=== PATIENT | male | born 1955 | race Hispanic/Latino ===

== ENCOUNTER 2016-08-26 16:14 | Emergency (ER) | payer OTHER ==
[~2016-08-26] VITALS: Ht 162.6 cm; Wt 104.5 kg
[~2016-08-26 16:14] MED LIST: CITA20TA11 PO; GLU500 PO; GLYB2.5T4 PO; GLYB2.5T5 PO; HIBICLENS; METF1000 PO; MUPI30OI3 TP; SULF1TAB35 PO; ZLP10T PO; ZOLP5TAB6 PO; ZYRTEC
[2016-08-26 16:21] VITALS: BP 183/92; PULSE 100; RESP 20; O2SAT 100
--- NOTE | 2016-08-26 20:11 | ED.REPORT ---
HPI-Neck Pain Free Text HPI Notes Aug 26, 2016 ED Provider: Daryl Peter MD History of Present Illness: Patient is a 60 y.o. M presents Pain began friday started with redness, pain located with left retroauricular abscess that opened up and drained, described as sharp,moves toward left ear. Assocaited with fever, chills, headache. Patient taking ibuprophen and tylenol for pain, and Bactrim for infection. Patient saw PCP Cassie Londono in . Patient had similar episode 6 months ago. Patient stated he thinks the cause is not taking metformin and lisinopril. Denies chage in vision, Nursing Notes Stated Complaint: PAIN IN NECK Chief Complaint: Pain in neck associated with abscess Nursing Notes Reviewed: Yes Allergies: Coded Allergies: Penicillins (Verified Allergy, Severe, hives/rash all body, 05/09/15) Scheduled Citalopram (Citalopram) 20 Mg Tablet 20 MG PO DAILY Glyburide (Glyburide) 2.5 Mg Tablet 2.5 MG PO BIDAC Metformin (Glucophage) 1,000 Mg Tablet 1,000 MG PO BID Metformin-Expunged Drug, Do Not Renew! (Metformin-Expunged Drug, Do Not Renew!) 500 Mg Tablet 500 MG PO BID CONTRAINDICATED: MALES SrCr 1.5 OR GREATER; FEMALES SrCr 1.4 ORGREATER ORCrCl <60; HOLD METFORMIN 48 HOURS AFTER IV CONTRAST ADMINISTRATION. Sulfamethoxazole/Trimeth 800-160 mg (Bactrim DS 800-160 mg) 1 Each Tablet 1 TABLET PO BID Zolpidem-Expunged Drug, Do Not Renew! (Zolpidem-Expunged Drug, Do Not Renew!) 10 Mg Tab 10 MG PO HS For Insomnia Scheduled PRN Zolpidem (Zolpidem) 5 Mg Tablet 5 MG PO HS PRN PRN For Insomnia Miscellaneous Medications ([Zyrtec]) ([hibiclens]) Glyburide-Expunged Drug, Do Not Renew! (Glyburide-Expunged Drug, Do Not Renew!) 2.5 Mg Tablet 2.5 MG PO Mupirocin (Centany) 30 Gm Oint...g. 30 GM TP General Time Seen by Provider: 18:20 Chief Complaint Neck pain, Other (abscess) Hx Obtained From: Patient Arrived By: Walk-in Onset Occurred: 3 days ago Symptom Duration: Constant Progression Since Onset: Constant, Gradually worsening Location: : Lateral neck left Severity: Current: Pain level 7 out of 10 Severity: Maximum: Moderate Associated with: Reports: Fever, Stiff neck Exacerbated by: Turn to right, Turn to left, Palpation Relieved by: OTC medications, Prescription meds Past Medical History Past Medical History Kidney stones Insomnia Diabetes type II on metform HTN Reports: Diabetes mellitus Past Surgical History circumcision at age 49 for phimosis. Smoking History Never Smoker Social History Alcohol Use: "Social" (stopped 2 weeks ago) Drug Use: Denies drug use Other Social History: Ambulatory Status Independent Review of Systems Constitutional: Reports: Chills, Fever, Denies: Fatigue, Lethargy, Malaise, Recent wt loss, Weakness - generalized Eyes: Denies: Blurred bilateral, Blurred left, Blurred right, Diplopia, Discharge bilateral, Discharge left, Discharge right, Eye pain bilateral, Eye pain left, Eye pain right, Photophobia, Redness bilateral, Redness left, Redness right, Visual loss bilateral, Visual loss left, Visual loss right Ears / Nose / Throat: Denies: Ear drainage bilateral, Ear drainage left, Ear drainage right, Ear ringing bilateral, Ear ringing left, Ear ringing right, Earache bilateral, Earache left, Earache right, Hearing loss bilateral, Hearing loss left, Hearing loss right, Mouth pain, Nasal congestion, Nose bleeding, Sinus problem, Sore throat, Throat pain, Throat swelling, Tongue pain, Tongue swelling, Toothache, Voice change Respiratory: Denies: Dyspnea on exertion, Hemoptysis, Non-productive cough, Parox nocturnal dyspnea, Pleuritic pain, Prod cough, bloody, Prod cough, brown, Prod cough, clear, Prod cough, green, Prod cough, white, Prod cough, yellow, Shortness of breath, Wheezing Cardiovascular: Denies: Chest pain, Dyspnea on exertion, Edema, Orthopnea, Palpitations, Parox nocturnal dyspnea, Syncope GI: Denies: Abdominal pain, Anorexia, Belching, Bloody/tarry stool, Constipation, Diarrhea, Dysphagia, Hematemesis, Hematochezia, Melena, Mucousy stool, Nausea, Rectal pain, Vomiting Musculoskeletal: Denies: Back pain, Extremity pain, Extremity swelling, Joint pain, Joint swelling, Lumbar pain, Myalgia, Neck pain, Thoracic pain Complete sys rev & neg: except as marked. Physical Exam Initial Vital Signs Vital Signs (First) Date Time Temp Pulse Resp B/P Pulse Ox O2 Delivery O2 Flow Rate FiO2 08/26/16 16:21 36.9 100 20 183/92 100 Room Air Initial VS: Reviewed Head / Eyes: PERRL ENT: Mucous membranes moist, Conjunctiva normal, No scleral icterus Respiratory: Breath sounds normal, Clear to auscultation, No respiratory distress Cardiovascular: Regular rate & rhythm, Heart sounds normal, Intact distal pulses Abdomen / GI: Soft, No guarding, No rebound, No distention Back: No CVA tenderness Lymphatic: No lymphadenopathy Extremities: Vascular intact, Neuro intact, No swelling, No tenderness Skin: Warm, Dry, No cyanosis Psychiatric: Mood/affect normal, Behavior normal, Normal thought content Head / Scalp Abnl: Positive: Scalp swollen occipital L, Scalp tender occipital L Acuity / Tonometry: Negative: Hyperopia present, Increased intraoc pres L, Increased intraoc pres R, Intraocular pressure L, Intraocular pressure R, Myopia present, Visual acuity abnl bilat, Visual acuity abnormal L, Visual acuity abnormal R Pupils: Negative: Anisocoria, Blown L, Blown R, Dilated L, Dilated R, Nonreactive L, Nonreactive R, Photophobia L, Photophobia R, Pinpoint, Postoperative L, Postoperative R, Sluggish L, Sluggish R, Teardrop L, Teardrop R Abscess open and actively draining purulent materail behind left ear. Tenderness/Guarding/Rebound: Negative: Guarding involuntary, Guarding voluntary , McBurney's point tender, Smith's sign positive, Rebound diffuse, Rebound localized, Rigid to palpation, Tender LLQ..., Tender LUQ..., Tender RLQ..., Tender RUQ..., Tender diffuse, Tender epigastric, Tender flank L, Tender flank R , Tender periumbilical, Tender suprapubic Procedures Procedure Notes: Abcess wound was cleaned and drained, Area was anethesized with 6 cc of lidocaine with out epi aproximately 5-8 cc purlent materal drained from wound. Wound was irrigated and bandaged. EBL < 1 cc Re-Eval/Medical Decision Med Decision/Clinical Course Patient is a 60 y.o. M presented Pain began friday started with redness, pain located with left retroauricular abscess that opened up and drained, described as sharp,moves toward left ear. Assocaited with fever, chills, headache. Patient taking ibuprophen and tylenol for pain, and Bactrim for infection. ABscess behind left ear was drained, irrigated, and bandaged in ED. Patient is to continue antibiotic course and follow up with PCP in one week. Differential Diagnosis: Positive: Bite, Burn, Neck abrasion Severity: Non life-threatening Diagnosis Appears: Mild Comorbidities: Diabetes mellitus Discharge & Departure Primary Impression: Skin abscess Disposition: Home Discharge Condition All VS Reviewed: Yes Condition: Stable Additional Instructions: During you visit to [facility] Emergency Department we drained and cleaned your wound. Your vital signs were stable and safe for discharge. Continue to keep wound clean and dry. Bandage but to not block air flow to wound. You may use NSAIDs for pain Finish your course of antibiotics as directed Use warm compress to help wound to drain. Do not hesitate to call emergency services or your primary care physician if you experience any of the following. - High unrelenting fevers. - Uncontrolled vomiting. - Severe hypertension. - Syncope or loss of consciousness. - Chest pain or severe shortness of breath. Referrals: Jameel Coleman MD (PCP) copies to: Jameel Coleman MD, AARON J DO Aug 26, 2016 18:31 RICKI TESFAYE DO Aug 26, 2016 20:11 Daryl Peter MD Aug 26, 2016 23:03
== END 2016-08-26 20:30 | disposition home or self-care (01) ==
LOC: SED 16:14
DX: L02.811 Cutaneous abscess of head [any part, except face] (principal); M54.2 Cervicalgia; E11.9 Type 2 diabetes mellitus without complications; I10 Essential (primary) hypertension; Z79.84 Long term (current) use of oral hypoglycemic drugs; Z88.0 Allergy status to penicillin

== ENCOUNTER 2016-08-28 04:29 | Emergency (ER) | payer OTHER ==
[~2016-08-28] VITALS: Ht 162.6 cm; Wt 104.5 kg
[2016-08-28 04:33] VITALS: BP 169/85; PULSE 77; RESP 16; O2SAT 98
--- NOTE | 2016-08-28 04:47 | ED.REPORT ---
HPI-Rash / Abscess Date of Service Aug 28, 2016 ED Provider: Arron Arnlod MD Patient is a 60 year old male with a history of diabetes mellitus and hypertension with recent I&D of an abscess of his left neck on August 26 who presents to the ED complaining of ongoing pain associated with his abscess, worse in severity for the past 2 days. The patient first developed the abscess 5 days ago, with the wound draining prior to the I&D being performed. Patient states that draining the abscess did not improve his pain and that he wishes they would have done something else to treat the abscess. He is currently on Bactrim for antibiotics and is taking Ibuprofen for pain. The patient has a very important interview tomorrow, as he has recently been unemployed, and would like this to be taken care of by then. The patient's a year ago and he has been supporting his daughter since that time. Patient reports associated neck but denies left ear pain, shortness of breath, or fever. Nursing Notes Stated Complaint: NECK CYST PAIN Chief Complaint: Skin Rash/Abscess Nursing Notes Reviewed: Yes Allergies: Coded Allergies: Penicillins (Verified Allergy, Severe, hives/rash all body, 05/09/15) Scheduled Citalopram (Citalopram) 20 Mg Tablet 20 MG PO DAILY Glyburide (Glyburide) 2.5 Mg Tablet 2.5 MG PO BIDAC Metformin (Glucophage) 1,000 Mg Tablet 1,000 MG PO BID Metformin-Expunged Drug, Do Not Renew! (Metformin-Expunged Drug, Do Not Renew!) 500 Mg Tablet 500 MG PO BID CONTRAINDICATED: MALES SrCr 1.5 OR GREATER; FEMALES SrCr 1.4 ORGREATER ORCrCl <60; HOLD METFORMIN 48 HOURS AFTER IV CONTRAST ADMINISTRATION. Sulfamethoxazole/Trimeth 800-160 mg (Bactrim DS 800-160 mg) 1 Each Tablet 1 TABLET PO BID Zolpidem-Expunged Drug, Do Not Renew! (Zolpidem-Expunged Drug, Do Not Renew!) 10 Mg Tab 10 MG PO HS For Insomnia Scheduled PRN Zolpidem (Zolpidem) 5 Mg Tablet 5 MG PO HS PRN PRN For Insomnia Miscellaneous Medications ([Zyrtec]) ([hibiclens]) Glyburide-Expunged Drug, Do Not Renew! (Glyburide-Expunged Drug, Do Not Renew!) 2.5 Mg Tablet 2.5 MG PO Mupirocin (Centany) 30 Gm Oint...g. 30 GM TP General Time Seen by MD: 04:45 Chief Complaint Abscess Hx Obtained From: Patient Arrived By: Walk-in Onset Occurred: 5 days ago (worse for the past 2 days) Symptom Duration: Since onset Quality: Painful Severity: Current: Moderate Severity: Maximum: Moderate Recent Healthcare: No recent hospitalization, Recent doctor visit Past Medical History Past Medical History Kidney stones Insomnia Diabetes type II on metform hypertension Past Surgical History circumcision at age 49 for phimosis. Smoking History Never Smoker Social History Alcohol Use: "Social" Drug Use: Denies drug use Other Social History: , Local resident Ambulatory Status Independent Review of Systems Constitutional: Denies: Chills, Fever Ears / Nose / Throat: Denies: Earache left Respiratory: Denies: Shortness of breath Musculoskeletal: Reports: Neck pain Skin: Reports Rash (abscess), Denies Itching Complete sys rev & neg: except as marked. Physical Exam Initial Vital Signs Vital Signs (First) Date Time Temp Pulse Resp B/P Pulse Ox O2 Delivery O2 Flow Rate FiO2 08/28/16 04:33 36.1 77 16 169/85 98 Room Air Initial VS: Reviewed, Vital signs normal Extremities: Vascular intact, Neuro intact Neurologic: Alert, Oriented, Nonfocal Psychiatric: Mood/affect normal, Behavior normal, Normal thought content General/Constitutional: Awake, Alert, No acute distress Appearance / Presentation: Positive: Obese Skin: Warm, Dry Abscess Notes: large erythematous indurated and swollen area involving the left half of the posterior neck. Large and draining centrally. Head / Eyes: Normocephalic, PERRL see skin exam for abscess description ENT: Airway patent Left Ear / Mastoid: Negative: External canal red, Tympanic memb perforated, Tympanic membrane red erythema of the posterior left ear Respiratory / Chest: No respiratory distress, No wheezing, No stridor Cardiovascular: Heart rate NL, Cap refill not delayed Neck: Supple, No midline vertebral tend Interpretation & Diagnostics Lab Results Interpretation Result Diagram: 08/28/16 0525 08/28/16 0525 Test 08/28/16 05:25 White Blood Count 14.5th/mm3 (3.8-10.1) Red Blood Count 3.44mil/mm3 (4.40-5.80) Hemoglobin 11.3g/dL (13.8-17.2) Hematocrit 33.6% (41.0-50.0) Mean Corpuscular Volume 97.7fL (81-100) Mean Corpuscular Hemoglobin 32.8pg (27.0-35.0) Mean Corpuscular Hemoglobin Concent 33.6% (32.0-37.0) Red Cell Distribution Width 13.0% (12.3-15.4) Platelet Count 321bil/L (150-400) Neutrophils (%) (Auto) 77.7% (40-74) Lymphocytes (%) (Auto) 13.8% (14-46) Monocytes (%) (Auto) 5.7% (4-12) Eosinophils (%) (Auto) 1.7% (0-5) Basophils (%) (Auto) 0.1% (0-3) Sodium Level 132mEq/L (134-144) Potassium Level 4.3mEq/L (3.5-5.2) Chloride Level 93mEq/L (97-108) Carbon Dioxide Level 26mmol/L (18-29) Blood Urea Nitrogen 15mg/dL (8-27) Creatinine 0.70mg/dL (0.76-1.27) Estimat Glomerular Filtration Rate 122mL/min (>59) Glucose Level 257mg/dL (60-99) Lactic Acid Level 1.1mmol/L (0.4-2.0) Calcium Level 9.2mg/dL (8.5-10.1) Magnesium Level 1.7mg/dL (1.6-2.6) Total Bilirubin 0.3mg/dL (0.0-1.2) Aspartate Amino Transf (AST/SGOT) 14U/L (0-50) Alanine Aminotransferase (ALT/SGPT) 13U/L (0-44) Alkaline Phosphatase 83U/L (25-160) Total Protein 8.0g/dL (6.4-8.4) Albumin 3.5g/dL (3.4-5.0) Lab Results Interpretation: Elevated white count, elevated blood glucose Re-Eval/Medical Decision Med Decision/Clinical Course 60-year-old male with an abscess on his left posterior neck which was drained couple days ago. He now has worsening symptoms. His workup was initiated by me to include labs, IV, and contrast CT. His care will be turned over at change of shift to Dr. Ortez. Source of Hx: Old records Discharge & Departure Shift Change Sign-Out Patient Care Transferred: Yes Discussed Complaint(s): Yes Laboratory Evaluation: Ordered, not yet done Imaging Studies: Ordered, not yet done Impression: Primary Impression: Neck abscess Referrals: Jameel Coleman MD (PCP) Care Transferred to: Dr. Ortez Care Transferred at: 06:00 Amarjit Attestation Portions of this note were transcribed by Nai Rae. I, Dr. Arnold personally performed the history, physical exam and medical decision-making; I reviewed and confirmed the accuracy of the information in the transcribed note. Signed by: Amarjit Mills, 08/28/2016 0549 copies to: Jameel Coleman MD, Howard L MD Aug 28, 2016 04:47 Nai Rae Aug 28, 2016 04:49
[2016-08-28] MEDS ORDERED: 0.9% Sodium Chloride 1,000 ML IV ONE (04:58)
[2016-08-28 05:34] LABS: BASOPHILS % (AUTO) 0.1 % (0-3); EOSINOPHILS % (AUTO) 1.7 % (0-5); MONOCYTES % (AUTO) 5.7 % (4-12); Mean Corpuscular Hemoglobin 32.8 pg (27.0-35.0); Mean Corpuscular Volume 97.7 fL (81-100); NEUTROPHILS % (AUTO) 77.7 % (40-74); Platelet Count 321 bil/L (150-400)
[2016-08-28 05:57] LABS: Magnesium 1.7 mg/dL (1.6-2.6)
[2016-08-28] MEDS ORDERED: cefTRIAXone Inj 2,000 MG in Dextrose 5% Minibag Plus 50 ML IV STA (08:13)
[2016-08-28] MEDS ORDERED: oxyCODONE-Acetamin 5-325 mg Tablet PO ONE (08:15)
[2016-08-28] MEDS ORDERED: HYDROmorphone 1 mg/mL Inj ONE (08:44)
[2016-08-28] MEDS ORDERED: HYDROmorphone 0.5 mg/0.5 mL iSecure Syringe IVPUSH PRN (09:00)
--- NOTE | 2016-08-28 10:08 | DRSVH ---
PROCEDURE: CT NECK SOFT TISSUES WITH CONTRAST ([id number]) INDICATIONS: abscess TECHNIQUE: After the administration of intravenous contrast, 3.0 mm axial sections acquired from the sella to th e aortic arch. Additional oblique axial 3.0 mm sections acquired through the pharynx. 3 mm thick co jordan reformats were generated. For radiation dose reduction, the following was used: automated exp osure control. COMPARISON: [facility], CT, BRAIN W/O CONTRAST, 05/04/2013, 12:22. FINDINGS: Image quality: Excellent. Lymph nodes: No enlarged lymph nodes seen throughout the neck. Vessels: Visualized vasculature appears patent. Neck spaces: The oropharynx, nasopharynx, and pharynx demonstrate no mucosal lesions. The vocal cor ds, false vocal cords, pyriform sinuses, epiglottis, vallecula, and tongue base all appear normal. E xtramucosal spaces appear unremarkable. Glands: The parotid and submandibular glands appear normal. Thyroid gland appears normal. Miscellaneous: Visualized brain and orbits appear normal. Lung apices appear clear. Superficial so ft tissues appear normal. Note is made of prominent soft tissue swelling involving the left posterol ateral neck superiorly, extending into the retroauricular area on the left, with edema but no abscess formation within or adjacent to this area. Bones: No suspicious bony lesions. Visualized sinuses and mastoids appear unremarkable. IMPRESSION: The imaging findings indicate prominent soft tissue swelling of the upper posterolateral neck and calvarial region, extending into the retroauricular area of the left head, without internal abscess or evidence of underlying osteomyelitis. Cellulitis is the most likely cause. Trauma concei vably could produce this appearance. Dictated by: Jeff Angelo M.D. on 08/28/2016 at 10:02 Approved by: Jeff Angelo M.D. on 08/28/2016 at 10:05
[2016-08-28 10:49] VITALS: BP 141/83; PULSE 78; RESP 16; O2SAT 99
[2016-08-28] MEDS ORDERED: OXYC1TAB24 PO (10:52)
[2016-08-28] MEDS ORDERED: CLIN-78 PO (10:52)
== END 2016-08-28 10:59 | disposition home or self-care (01) ==
LOC: SED 04:29
DX: L02.11 Cutaneous abscess of neck (principal); E11.9 Type 2 diabetes mellitus without complications; I10 Essential (primary) hypertension; Z98.890 Other specified postprocedural states; Z79.84 Long term (current) use of oral hypoglycemic drugs; Z87.442 Personal history of urinary calculi; Z88.0 Allergy status to penicillin
CPT/HCPCS: 36415; 70491; 80053; 83605; 83735; 85025; 96361; 96365; 96375; 99285; J0696; J1170; J7030; Q9967

== ENCOUNTER 2017-01-08 23:35 | Emergency (ER) | payer OTHER ==
[~2017-01-08] VITALS: Ht 162.6 cm; Wt 104.5 kg
[~2017-01-08 23:35] MED LIST changes: +CLIN-78 PO; +OXYC1TAB24 PO
[2017-01-08 23:38] VITALS: BP 151/84; PULSE 96; RESP 16; O2SAT 99
--- NOTE | 2017-01-08 23:46 | ED.REPORT ---
HPI-Trauma Minor / Fall Date of Service Jan 08, 2017 ED Provider: Giovanni Singh DO Pt is a 61 year old male with a history of Type II DM and HTN who presents to the ED complaining of left-sided chest pain after a ground level fall. He denies head pain, neck pain, and LOC. The pt was walking when he slipped and fell on his left side. Nursing Notes Stated Complaint: FELL,HIT CEMENT FLOOR Chief Complaint: Multiple Trauma/Fall Nursing Notes Reviewed: Yes Allergies: Coded Allergies: Penicillins (Verified Allergy, Severe, hives/rash all body, 01/08/17) Scheduled Citalopram (Citalopram) 20 Mg Tablet 20 MG PO DAILY Clindamycin (Clindamycin) 300 Mg Capsule 300 MG PO TID Glyburide (Glyburide) 2.5 Mg Tablet 2.5 MG PO BIDAC Metformin (Glucophage) 1,000 Mg Tablet 1,000 MG PO BID Metformin-Expunged Drug, Do Not Renew! (Metformin-Expunged Drug, Do Not Renew!) 500 Mg Tablet 500 MG PO BID CONTRAINDICATED: MALES SrCr 1.5 OR GREATER; FEMALES SrCr 1.4 ORGREATER ORCrCl <60; HOLD METFORMIN 48 HOURS AFTER IV CONTRAST ADMINISTRATION. Sulfamethoxazole/Trimeth 800-160 mg (Bactrim DS 800-160 mg) 1 Each Tablet 1 TABLET PO BID Zolpidem-Expunged Drug, Do Not Renew! (Zolpidem-Expunged Drug, Do Not Renew!) 10 Mg Tab 10 MG PO HS For Insomnia Scheduled PRN Zolpidem (Zolpidem) 5 Mg Tablet 5 MG PO HS PRN PRN For Insomnia oxyCODONE-Acetaminophen 5-325 mg (oxyCODONE-Acetaminophen 5-325 mg) 1 Each Tablet 1-2 TAB PO Q6H PRN PRN For Pain Miscellaneous Medications ([Zyrtec]) ([hibiclens]) Glyburide-Expunged Drug, Do Not Renew! (Glyburide-Expunged Drug, Do Not Renew!) 2.5 Mg Tablet 2.5 MG PO Mupirocin (Centany) 30 Gm Oint...g. 30 GM TP General Time Seen by MD: 23:46 Chief Complaint Fall Hx Obtained From: Patient Arrived By: Walk-in Onset Occurred: Just prior to arrival Symptom Duration: Since onset Location: Chest Knee left Quality: Painful Severity: Current: Moderate Severity: Maximum: Moderate Recent Healthcare: No recent doctor visit, No recent hospitalization Similar Sx Previous: No Past Medical History Past Medical History Kidney stones Insomnia Diabetes type II on metform hypertension Past Surgical History circumcision at age 49 for phimosis. Smoking History Never Smoker Social History Alcohol Use: "Social" Drug Use: Denies drug use Other Social History: , Local resident Ambulatory Status Independent Review of Systems Denies head pain Musculoskeletal: Reports: Extremity pain, Denies: Back pain, Neck pain Complete sys rev & neg: except as marked. Cardiovascular: Reports: Chest pain GI: Denies: Abdominal pain Physical Exam Initial Vital Signs Vital Signs (First) Date Time Temp Pulse Resp B/P Pulse Ox O2 Delivery O2 Flow Rate FiO2 01/08/17 23:38 36 96 16 151/84 99 Room Air Initial VS: Reviewed ENT: Mucous membranes moist, Conjunctiva normal, No scleral icterus Respiratory: Breath sounds normal, Clear to auscultation, No respiratory distress Cardiovascular: Regular rate & rhythm, Heart sounds normal, Intact distal pulses Abdomen / GI: Soft, Non-tender Skin: Warm, Dry, No cyanosis Neurologic: Alert, Oriented, Nonfocal Psychiatric: Mood/affect normal, Behavior normal General/Constitutional: Awake, Alert, Cooperative, Not toxic appearing Neck: Atraumatic, Full range of motion Respiratory / Chest: Atraumatic, Breath sounds NL, Breath sounds = bilat Tender chest wall tender on left lateral rib cage. Lower Extremity / Pelvis / MS: Neurologic intact, Vascular intact Tenderness in left knee. Interpretation & Diagnostics X-Ray Chest Interpretation Chest Xray Interpretation: Negative. Interpretation / Wet Read by: Wet read ED physician X-Ray Interpretation Xray Interpretation: Negative. X-Ray Ordered: Knee left Interpretation / Wet Read by: Wet read ED physician Re-Eval/Medical Decision Med Decision/Clinical Course No displaced fracture seen in the chest. No fracture seen in his knee. He does have joint space narrowing in the medial compartment. No signs of traumatic injury. I will place on Naprosyn when he is at work. Short course of Percocet for when his home and does not have to drive. Outpatient follow-up with his primary care physician. Routine opiate warnings given. Source of Hx: Old records Re-Evaluation/Progress : Time of Eval: 00:10 Re-Evaluation/Progress Note: Pt rechecked. Informed pt of plan for discharge. Pt understands and agrees with plan for discharge. F/U instructions and RTER warnings given. All questions addressed. Counseled Regarding: Diagnosis, Need for follow-up, When/why to return to ED Discharge & Departure Impression: Primary Impression: Fall from ground level Additional Impressions: Contusion of chest Encounter type: initial encounter Laterality: left Qualified Code: S20.212A - Contusion of left front wall of thorax, initial encounter Contusion of left knee Encounter type: initial encounter Qualified Code: S80.02XA - Contusion of left knee, initial encounter Disposition: Home Discharge Condition All VS Reviewed: Yes Condition: Stable Patient Instructions: Contusion in Adults (ED), Rib Fracture (ED) Additional Instructions: Take 1-2 Percocet every 6 hours as needed[address] Do not drive or drink alcohol or consume acetaminophen while taking Percocet. Follow up with your primary care provider in 1 week. Return to the Emergency Department for any new or worsening symptoms. Take Naprosyn one every 12 hours as needed for moderate pain. History can take while driving while at work. Do not take the Percocet while you are at work. Referrals: Jameel Coleman MD (PCP) Hill Melendez Attestation Portions of this note were transcribed by Mavis Chow. IDr. Singh personally performed the history, physical exam and medical decision-making; I reviewed and confirmed the accuracy of the information in the transcribed note. Signed by: Amarjit Pike, 01/09/17 and 24:50. copies to: Jameel Coleman MD; Hill Melendez Todd P DO Jan 08, 2017 23:46 Mavis Bobo Jan 09, 2017 00:00
[2017-01-09] MEDS ORDERED: _oxyCODONE/APAP 5-325 mg Tablet PO PRN (00:10)
[2017-01-09 01:22] VITALS: BP 151/84; PULSE 96; RESP 16; O2SAT 99
--- NOTE | 2017-01-09 08:22 | DRSVH ---
PROCEDURE: X-RAY LEFT KNEE, THREE VIEWS ([id number]) INDICATIONS: fall ONTO CONCRETE, pain TECHNIQUE: 4 views of the knee were acquired. COMPARISON: None. FINDINGS: Bones: No acute fractures or dislocations. Normal left knee alignment and marked medial compartmental narrowing. Soft tissues: No joint effusion. No suspicious soft tissue calcifications. IMPRESSION: No acute fractures or dislocations. Marked medial compartment narrowing. Dictated by: Vincent Rod M.D. on 01/09/2017 at 8:13 Approved by: Vincent Rod M.D. on 01/09/2017 at 8:15
--- NOTE | 2017-01-09 08:25 | DRSVH ---
PROCEDURE: X-RAY LEFT RIBS INCLUDEING PA CHEST, MINUMUM THREE VIEWS ([id number]) INDICATIONS: fall, pain TECHNIQUE: 3 views of the left ribs were acquired, along with a single view chest. COMPARISON: None. FINDINGS: Surgical changes and devices: None. Bones and chest wall: Possible minimally displaced anterior left eighth rib fracture. Otherwise no fr actures or dislocations. No suspicious bony lesions. Overlying soft tissues appear unremarkable. Lungs and pleura: No pleural effusions or pneumothorax. Lungs appear clear. Mediastinum: Mediastinal contours appear normal. Heart size is normal. IMPRESSION: Possible minimally displaced anterior left eighth rib fracture. Dictated by: Vincent Rod M.D. on 01/09/2017 at 8:15 Approved by: Vincent Rod M.D. on 01/09/2017 at 8:18
== END 2017-01-09 01:42 | disposition home or self-care (01) ==
LOC: SED 23:35
DX: S20.212A Contusion of left front wall of thorax, initial encounter (principal); S80.02XA Contusion of left knee, initial encounter; W01.0XXA Fall on same level from slipping, tripping and stumbling without subsequent striking against object, initial encounter; Y93.01 Activity, walking, marching and hiking; Y92.69 Other specified industrial and construction area as the place of occurrence of the external cause; Y99.0 Civilian activity done for income or pay; E11.9 Type 2 diabetes mellitus without complications; I10 Essential (primary) hypertension; Z79.84 Long term (current) use of oral hypoglycemic drugs; Z88.0 Allergy status to penicillin